=== PATIENT | male | born 1980 | race Caucasian/White ===

== ENCOUNTER 2020-02-27 11:40 | Day surgery (SDC) | payer OTHER ==
[~2020-02-27] VITALS: Ht 182.9 cm; Wt 85.1 kg
[2020-02-27] MEDS ORDERED: LACTATED RINGERS 1,000 ML IV SCH (12:15)
[2020-02-27 12:16] VITALS: BP 132/88
[2020-02-27] MEDS ORDERED: NO MEDS PER PT (12:21)
[2020-02-27] MEDS ORDERED: CHLORHEXIDINE 15 ML UDC MM ONE (12:30)
[2020-02-27] MEDS ORDERED: PROPOFOL 10 MG/ML, 20ML ONE (12:52)
[2020-02-27] MEDS ORDERED: CEFAZOLIN 1,000 MG ONE (12:52)
[2020-02-27] MEDS ORDERED: SUCCINYLCHOLINE 20 MG/ML, 10ML ONE (12:52)
[2020-02-27] MEDS ORDERED: ONDANSETRON 2MG/ML, 2ML ONE (12:52)
[2020-02-27] MEDS ORDERED: ROCURONIUM 10 MG/ML,10ML ONE (12:52)
[2020-02-27] MEDS ORDERED: DEXAMETHASONE 4 MG/ML, 1ML ONE (12:52)
[2020-02-27] MEDS ORDERED: MIDAZOLAM 1 MG/ML, 2ML ONE (12:53)
[2020-02-27] MEDS ORDERED: FENTANYL PF 100 MCG/2ML ONE ×2 (12:54→14:56)
[2020-02-27] MEDS ORDERED: ACETAMINOPHEN 325 MG TABLET PO PRN (13:30)
[2020-02-27] MEDS ORDERED: PROMETHAZINE 25 MG/ML, 1ML IVPush PRN (13:30)
[2020-02-27] MEDS ORDERED: OXYcodone 5 MG/5 ML ORAL.SOL UDC PO PRN (13:30)
[2020-02-27] MEDS ORDERED: DIAZEPAM 5 MG/ML, 2ML IVPush PRN (13:30)
[2020-02-27] MEDS ORDERED: KETOROLAC 30 MG/1 ML IVPush PRN (13:30)
[2020-02-27] MEDS ORDERED: MEPERIDINE/PF 25MG/0.5ML IVPush PRN (13:30)
[2020-02-27] MEDS ORDERED: HYDROmorphone 1 MG/ML, 1ML INJ IVPush PRN (13:30)
[2020-02-27] MEDS ORDERED: ONDANSETRON 2MG/ML, 2ML IVPush PRN (13:30)
[2020-02-27] MEDS ORDERED: FENTANYL PF 100 MCG/2ML IV PRN (13:30)
[2020-02-27] MEDS ORDERED: OPIUM/BELLADONNA SUPP.RECT 16.2-60 MG ONE (14:03)
[2020-02-27] MEDS ORDERED: ACETAMINOPHEN 325 MG TABLET ONE (14:41)
[2020-02-27] MEDS ORDERED: KETOROLAC 30 MG/1 ML ONE (14:41)
[2020-02-27] MEDS ORDERED: ACETAMINOPHEN 650 MG/20.3 ML UDC ONE (14:41)
[2020-02-27] MEDS ORDERED: MEPERIDINE/PF 25MG/ML,1ML ONE (14:50)
[2020-02-27] MEDS ORDERED: OXYcodone 5 MG/5 ML ORAL.SOL UDC ONE (14:57)
[2020-02-27] MEDS ORDERED: KETOROLAC 30 MG/1 ML IVPush SCH (15:00)
[2020-02-27] MEDS ORDERED: DIAZEPAM 5 MG/ML, 2ML ONE (15:01)
== END 2020-02-27 16:35 | disposition home or self-care (01) ==
LOC: OUT 11:40
PROVIDERS: ATTEND Urology
DX: Z46.6 Encounter for fitting and adjustment of urinary device (principal); Z11.59 Encounter for screening for other viral diseases; N20.2 Calculus of kidney with calculus of ureter; N40.1 Benign prostatic hyperplasia with lower urinary tract symptoms; N13.8 Other obstructive and reflux uropathy; Z87.442 Personal history of urinary calculi
CPT/HCPCS: 52353; 74018; 82360; 87635; 88300; C1769; J0330; J0690; J1100; J1885; J2175; J2250; J2405; J2704; J3010; J3360; J7120; 76000